=== PATIENT | male | born 2000 | race Caucasian/White ===

== ENCOUNTER 2020-07-28 03:00 | Emergency (ER) | payer OTHER ==
[2020-07-28] MEDS ORDERED: MEPERIDINE HCL 25 MG/ML SYR ONE ×2 (03:42→06:42)
[2020-07-28] MEDS ORDERED: NA CHLORIDE 0.9% 1,000 ML ONE (03:42)
[2020-07-28] MEDS ORDERED: ONDANSETRON 4 MG/2 ML VIAL ONE ×3 (03:42→06:42)
[2020-07-28 04:04] LABS: Absolute Lymphocytes (CBC) 2.7 K/uL (0.7-4.9); Basophils % 0.4 % (0-1.3); Lymphocytes % 23.5 % (15.3-44.8); MPV 9.4 fL (7.6-11.3); RBC Red Blood Cell Count 4.82 M/uL (4.33-5.43)
[2020-07-28 04:14] LABS: ALT/SGPT 37 U/L (12-78); AST/SGOT 23 U/L (15-37); Albumin 4.2 g/dL (3.4-5.0); Alkaline Phosphatase 61 U/L (45-117); BUN Blood Urea Nitrogen 9 mg/dL (7-18); Bicarbonate 29 mmol/L (21-32); Bilirubin Direct 0.1 mg/dL (0-0.2); Bilirubin Total 0.6 mg/dL (0.2-1.0); Glucose Level 105 mg/dL (74-106); Lipase 85 U/L (73-393); Potassium 3.5 mmol/L (3.5-5.1); Protein, Total 7.7 g/dL (6.4-8.2); Sodium Level 142 mmol/L (136-145)
--- NOTE | 2020-07-28 06:37 | ER ---
Nurse's Notes [facility] Name: Tra Martins Age: 19 yrs Sex: Male : 2000 Arrival Date: 07/28/2020 Time: 03:04 Bed 6 Private MD: Diagnosis: Abdominal pain. Colitis Presentation: 07/28 03:12 Chief complaint: Patient states: i have abdominal cramping and vomiting 3-4x tonight. mg2 Coronavirus screen: Client denies travel out of the [place] in the last 14 days. The client reports previous COVID testing was negative. Ebola Screen: No symptoms or risks identified at this time. Initial Sepsis Screen: Does the patient meet any 2 criteria? No. Patient's initial sepsis screen is negative. Does the patient have a suspected source of infection? No. Patient's initial sepsis screen is negative. Risk Assessment: Do you want to hurt yourself or someone else? Patient reports no desire to harm self or others. Onset of symptoms was July 28, 2020. 03:12 Method Of Arrival: Wheelchair mg2 03:12 Acuity: [place] 3 mg2 03:13 Ebola Screen: No symptoms or risks identified at this time. ea Triage Assessment: 03:16 General: Appears in no apparent distress. comfortable, Behavior is calm, cooperative. mg2 Pain: Complains of pain in abdomen Pain does not radiate. Pain currently is 8 out of 10 on a pain scale. Quality of pain is described as crampy, Pain began gradually, Is intermittent. EENT: No signs and/or symptoms were reported regarding the EENT system. Neuro: Level of Consciousness is awake, alert, obeys commands, Oriented to person, place, time, situation. Cardiovascular: Capillary refill < 3 seconds Patient's skin is warm and dry. Respiratory: Airway is patent Respiratory effort is even, unlabored, Respiratory pattern is regular, symmetrical. GI: Reports lower abdominal pain, cramping, vomiting. : No deficits noted. Derm: Skin is intact, is healthy with good turgor, Skin is pink, warm \T\ dry. normal. Musculoskeletal: Circulation, motion, and sensation intact. Capillary refill < 3 seconds. Historical: - Allergies: 03:16 Morphine; mg2 - Home Meds: 03:16 None [Active]; mg2 - PMHx: 03:16 hypospadias; imperforated anus; hydrocephalus; one kidney (LEFT) congenital; heart mg2 [place]; - PSHx: 03:16 imperferated anus surgery; hypospadias; mg2 - Immunization history:: Adult Immunizations up to date. - Social history:: Smoking status: Patient denies any tobacco usage or history of. Screenin:10 Abuse screen: Denies threats or abuse. Nutritional screening: No deficits noted. ea Tuberculosis screening: No symptoms or risk factors identified. Fall Risk None identified. Assessment: 03:17 General: see triage assessment. mg2 06:08 Reassessment: Patient appears in no apparent distress at this time. Patient and/or mg2 family updated on plan of care and expected duration. Pain level reassessed. Patient is alert, oriented x 3, equal unlabored respirations, skin warm/dry/pink. patient complained of nausea. provider informed and orders made. patient medicated. 06:38 Reassessment: patient for dc after completing iv antbiotic. mg2 07:00 Reassessment: RECD REPORT FROM FOUZIA IBARRA. 19YO WM P/W ABD PAIN AND N/V. D/C ON HOLD bp FOR COMPLETION OF IV ABX. 07:45 Reassessment: Patient appears in no apparent distress at this time. Patient and/or ph family updated on plan of care and expected duration. Pain level reassessed. Patient is alert, oriented x 3, equal unlabored respirations, skin warm/dry/pink. Pt d/c home. Vital Signs: 03:12 BP 123 / 81; Pulse 59; Resp 18; Temp 98.4; Pulse Ox 98% on R/A; Height 5 ft. 9 in. mg2 (175.26 cm); Pain 8/10; 03:25 Weight 61.23 kg (R); ea 06:08 BP 136 / 79; Pulse 61; Resp 18; Pulse Ox 99% on R/A; mg2 06:19 BP 124 / 69; Pulse 57; Resp 16; Pulse Ox 99% ; ea 07:15 BP 111 / 65; Pulse 84; Resp 16; Pulse Ox 100% ; bp 03:25 Body Mass Index 19.94 (61.23 kg, 175.26 cm) ea ED Course: 03:04 Patient arrived in ED. bp1 03:05 Joss Romano RN is Primary Nurse. mg2 03:05 Isaias Watson MD is Attending Physician. pkl 03:13 Patient has correct armband on for positive identification. Bed in low position. Call ea light in reach. Pulse ox on. NIBP on. 03:13 Arm band placed on right wrist. Patient placed in an exam room, on a stretcher, on ea pulse oximetry. 03:14 Triage completed. mg2 03:29 Inserted saline lock: 22 gauge in right antecubital area, using aseptic technique. ds4 Blood collected. 05:36 CT Abd/Pelvis - PO and IV Contrast In Process Unspecified. EDMS 06:07 No provider procedures requiring assistance completed. mg2 07:01 Primary Nurse role handed off by Joss Romano, RN bp 07:01 Kavon Kilpatrick, RN is Primary Nurse. bp 07:45 IV discontinued, intact, bleeding controlled, No redness/swelling at site. Pressure ph dressing applied. Administered Medications: 03:35 Drug: Demerol 25 mg Route: IVP; Site: right antecubital; mg2 04:13 Follow up: Response: No adverse reaction; Marked relief of symptoms; RASS: Alert and mg2 Calm (0) 03:35 Drug: Zofran (Ondansetron) 4 mg Route: IVP; Site: right antecubital; mg2 04:13 Follow up: Response: No adverse reaction; Marked relief of symptoms; Nausea is decreasedmg2 03:36 Drug: NS 0.9% 500 ml Route: IV; Rate: bolus; Site: right antecubital; mg2 04:13 Follow up: Response: No adverse reaction; IV Status: Completed infusion; IV Intake: mg2 500ml 04:04 Drug: NS 0.9% 1000 ml Route: IV; Rate: 100 ml/hr; Site: right antecubital; mg2 07:44 Follow up: Response: No adverse reaction; IV Status: Completed infusion; IV Intake: ph 350ml 05:44 Drug: Zofran (Ondansetron) 4 mg Route: IVP; Site: right antecubital; mg2 06:25 Follow up: Response: No adverse reaction; Nausea unchanged mg2 06:33 Drug: Zofran (Ondansetron) 4 mg Route: IVP; Site: right antecubital; mg2 07:44 Follow up: Response: No adverse reaction ph 06:35 Drug: Demerol 25 mg Route: IVP; Site: right antecubital; mg2 07:44 Follow up: Response: No adverse reaction ph 06:37 Drug: Cipro 400 mg Volume: 200 ml; Route: IVPB; Infused Over: 60 mins; Site: right mg2 antecubital; 07:44 Follow up: Response: No adverse reaction; IV Status: Completed infusion ph Intake: 04:13 IV: 500ml; Total: 500ml. mg2 07:44 IV: 350ml; Total: 850ml. ph Outcome: 06:37 Discharge ordered by . pkcarole 07:45 Discharged to home via wheelchair, with family. ph 07:45 Condition: good 07:45 Discharge instructions given to patient, Instructed on discharge instructions, follow up and referral plans. medication usage, Demonstrated understanding of instructions, follow-up care, medications, Prescriptions given X 2. 07:46 Patient left the ED. ph Signatures: Dispatcher [employer] EDMS Isaias Watson MD MD pkl Swanson, Donovan ds4 Jigna Urbina RN RN ph Kisha Salinas RN RN ea Peltier, Brian, RN RN bp Gardose, Michele, RN RN mg2 Anna Ch bp1 Corrections: (The following items were deleted from the chart) 06:09 06:08 Pulse 61bpm; Resp 18bpm; Pulse Ox 99% RA; mg2 mg2
--- NOTE | 2020-07-28 06:38 | EDPHYS ---
Physician Documentation [facility] Name: Tra Martins Age: 19 yrs Sex: Male : 2000 Arrival Date: 07/28/2020 Time: 03:04 Bed 6 Private MD: ED Physician Isaias Watson HPI: 07/28 03:27 This 19 yrs old Male presents to ER via Wheelchair with complaints of pkl Abdominal Pain, Abdominal Cramping, Vomiting. 03:27 The patient presents with abdominal pain in the lower abdomen. Onset: The pkl symptoms/episode began/occurred just prior to arrival, 2 hour(s) ago. The symptoms do not radiate. Associated signs and symptoms: Pertinent positives: nausea and vomiting. The patient has experienced similar episodes in the past, several times. Patient has H/O imperforate anus surgery done as an . Historical: - Allergies: 03:16 Morphine; mg2 - Home Meds: 03:16 None [Active]; mg2 - PMHx: 03:16 hypospadias; imperforated anus; hydrocephalus; one kidney (LEFT) congenital; heart mg2 [place]; - PSHx: 03:16 imperferated anus surgery; hypospadias; mg2 - Immunization history:: Adult Immunizations up to date. - Social history:: Smoking status: Patient denies any tobacco usage or history of. ROS: 03:27 Eyes: Negative for injury, pain, redness, and discharge, ENT: Negative for injury, pkl pain, and discharge, Neck: Negative for injury, pain, and swelling, Cardiovascular: Negative for chest pain, palpitations, and edema, Respiratory: Negative for shortness of breath, cough, wheezing, and pleuritic chest pain. 03:27 Abdomen/GI: Positive for abdominal pain, nausea and vomiting, abdominal cramps, of the right lower quadrant and left lower quadrant. 03:27 Back: Negative for acute changes. 03:27 : Negative for urinary symptoms. 03:27 MS/extremity: Negative for acute changes. 03:27 Skin: Negative for rash. 03:27 Neuro: Negative for altered mental status. Exam: 03:27 Head/Face: Normocephalic, atraumatic. Eyes: Pupils equal round and reactive to light, pkl extra-ocular motions intact. Lids and lashes normal. Conjunctiva and sclera are non-icteric and not injected. Cornea within normal limits. Periorbital areas with no swelling, redness, or edema. ENT: Nares patent. No nasal discharge, no septal abnormalities noted. Tympanic membranes are normal and external auditory canals are clear. Oropharynx with no redness, swelling, or masses, exudates, or evidence of obstruction, uvula midline. Mucous membranes moist. Neck: Trachea midline, no thyromegaly or masses palpated, and no cervical lymphadenopathy. Supple, full range of motion without nuchal rigidity, or vertebral point tenderness. No Meningismus. Chest/axilla: Normal chest wall appearance and motion. Nontender with no deformity. No lesions are appreciated. Cardiovascular: Regular rate and rhythm with a normal S1 and S2. No gallops, murmurs, or rubs. Normal PMI, no JVD. No pulse deficits. Respiratory: Lungs have equal breath sounds bilaterally, clear to auscultation and percussion. No rales, rhonchi or wheezes noted. No increased work of breathing, no retractions or nasal flaring. 03:27 Abdomen/GI: Bowel sounds: active, Palpation: soft, mild abdominal tenderness, in the right lower quadrant and left lower quadrant. 03:27 Back: Exam negative for acute changes. 03:27 : Exam negative for acute changes. 03:27 Musculoskeletal/extremity: Exam is negative for acute changes. 03:27 Skin: Exam negative for rash. 03:27 Neuro: Orientation: is normal, Mentation: is normal, Cranial nerves: grossly normal, Motor: is normal. Vital Signs: 03:12 BP 123 / 81; Pulse 59; Resp 18; Temp 98.4; Pulse Ox 98% on R/A; Height 5 ft. 9 in. mg2 (175.26 cm); Pain 8/10; 03:25 Weight 61.23 kg (R); ea 06:08 BP 136 / 79; Pulse 61; Resp 18; Pulse Ox 99% on R/A; mg2 06:19 BP 124 / 69; Pulse 57; Resp 16; Pulse Ox 99% ; ea 07:15 BP 111 / 65; Pulse 84; Resp 16; Pulse Ox 100% ; bp 03:25 Body Mass Index 19.94 (61.23 kg, 175.26 cm) ea MDM: 03:05 Patient medically screened. pkl 06:29 Data reviewed: vital signs, nurses notes, lab test result(s), radiologic studies, CT pkl scan. ED course: Patient feeling better. Discussed lab. and CT Scan results with patient and mother. Options for outpatient and inpatient offered to patient. Patient and mother outpatient treatment at this time. Will return if symptoms are worse.. 07/28 03:14 Order name: Basic Metabolic Panel; Complete Time: 04:25 mg2 07/28 03:14 Order name: CBC with Diff; Complete Time: 04:12 mg2 07/28 03:14 Order name: Hepatic Function; Complete Time: 04:25 mg2 07/28 03:14 Order name: Lipase; Complete Time: 04:25 mg2 07/28 03:26 Order name: CT Abd/Pelvis - PO and IV Contrast pkl 07/28 03:14 Order name: IV Saline Lock; Complete Time: 03:33 mg2 07/28 03:14 Order name: Labs collected and sent; Complete Time: 03:33 mg2 Administered Medications: 03:35 Drug: Demerol 25 mg Route: IVP; Site: right antecubital; mg2 04:13 Follow up: Response: No adverse reaction; Marked relief of symptoms; RASS: Alert and mg2 Calm (0) 03:35 Drug: Zofran (Ondansetron) 4 mg Route: IVP; Site: right antecubital; mg2 04:13 Follow up: Response: No adverse reaction; Marked relief of symptoms; Nausea is decreasedmg2 03:36 Drug: NS 0.9% 500 ml Route: IV; Rate: bolus; Site: right antecubital; mg2 04:13 Follow up: Response: No adverse reaction; IV Status: Completed infusion; IV Intake: mg2 500ml 04:04 Drug: NS 0.9% 1000 ml Route: IV; Rate: 100 ml/hr; Site: right antecubital; mg2 07:44 Follow up: Response: No adverse reaction; IV Status: Completed infusion; IV Intake: ph 350ml 05:44 Drug: Zofran (Ondansetron) 4 mg Route: IVP; Site: right antecubital; mg2 06:25 Follow up: Response: No adverse reaction; Nausea unchanged mg2 06:33 Drug: Zofran (Ondansetron) 4 mg Route: IVP; Site: right antecubital; mg2 07:44 Follow up: Response: No adverse reaction ph 06:35 Drug: Demerol 25 mg Route: IVP; Site: right antecubital; mg2 07:44 Follow up: Response: No adverse reaction ph 06:37 Drug: Cipro 400 mg Volume: 200 ml; Route: IVPB; Infused Over: 60 mins; Site: right mg2 antecubital; 07:44 Follow up: Response: No adverse reaction; IV Status: Completed infusion ph Disposition: 07/28/20 06:37 Discharged to Home. Impression: Abdominal pain. Colitis. - Condition is Stable. - Prescriptions for Cipro 500 mg Oral Tablet - take 1 tablet by ORAL route every 12 hours for 5 days; 10 tablet. Zofran 4 mg Oral Tablet - take 1 tablet by ORAL route every 8 hours As needed; 12 tablet. - Medication Reconciliation Form, Thank You Letter, Antibiotic Education, Prescription Opioid Use, Work release form form. - Follow up: Private Physician; When: 2 - 3 days; Reason: Re-evaluation by your physician. - Problem is new. - Symptoms have improved. Signatures: Dispatcher [employer] EDMS Isaias Watson MD MD pkl Jigna Urbina RN RN Kisha Salinas RN RN Joss Romano RN RN mg2 Corrections: (The following items were deleted from the chart) 07:46 06:37 07/28/2020 06:37 Discharged to Home. Impression: Abdominal pain. Colitis. ph Condition is Stable. Forms are Medication Reconciliation Form, Thank You Letter, Antibiotic Education, Prescription Opioid Use. Follow up: Private Physician; When: 2 - 3 days; Reason: Re-evaluation by your physician. Problem is new. Symptoms have improved. pkl
[2020-07-28] MEDS ORDERED: CIPROFLOXACIN 400mg IV 400 MG/200 ML BAG IV ONE (06:42)
--- NOTE | 2020-07-28 10:16 | RAD REPORT ---
EXAM DESCRIPTION: CT Abdomen and Pelvis With Intravenous Contrast CLINICAL HISTORY: ABD PAIN TECHNIQUE: Axial computed tomography images of the abdomen and pelvis with intravenous contrast. S agittal and coronal reformatted images were created and reviewed. This CT exam was performed using one or more of the following dose reduction techniques: automated exposure control, adjustment of t he mA and/or kV according to patient size, and/or use of iterative reconstruction technique. Oral c ontrast was administered. COMPARISON: No relevant prior studies available. FINDINGS: Limitations: None. Lung bases: No abnormality noted. Pleural space: No abnormality noted. Heart: No abnormality noted. Mediastinum: No abnormality noted. ABDOMEN: Liver: No abnormality noted. Gallbladder and bile ducts: No calcified stones or surrounding fluid. Pancreas: Homogeneous enhancement. No mass, inflammation or ductal dilation. Spleen: No abnormality noted. Adrenals: Visualized portions appear normal. Kidneys and ureters: Absent right kidney. There is compensatory hypertrophy of the left kidney. No stones or hydronephrosis. Stomach and bowel: There is a moderate to large amount of diffuse colonic stool. There is short segment collapse and thickening of the sigmoid colon. The thickened segment is devoid of stool wit h a moderate amount of stool proximal and distal to the segment. No obstruction. PELVIS: Appendix: Well seen and appears normal. Bladder: No filling defects to suggest mass or large stone. No inflammation. Reproductive: No abnormalities noted. ABDOMEN and PELVIS: Intraperitoneal space: Trace free fluid noted in the pelvis. No abscess or free air. Bones/joints: No acute change noted. Soft tissues: No abnormality noted. Vasculature: No abdominal aortic aneurysm. Lymph nodes: No pathologically enlarged lymph nodes. IMPRESSION: Short segment sigmoid colonic thickening with a large amounts of stool proximal and dist al. Consider stercoral colitis. There is no obstruction. Electronically signed by: Hazel Oliver MD 07/28/2020 6:12 AM WASTE MACHINE OPERATOR Due to temporary technical issues with the PACS/Fluency reporting system, reports are being signed by the in house radiologists without review as a courtesy to insure prompt reporting. The interpreting radiologist is fully responsible for the content of the report.
[2020-07-28 11:25] VITALS: TEMP 98.4
[2020-07-28 11:30] VITALS: BP 111/65; O2SAT 100
== END 2020-07-28 07:46 | disposition home or self-care (01) ==
LOC: ER 03:00
DX: K52.9 Noninfective gastroenteritis and colitis, unspecified (principal); R01.1 Cardiac murmur, unspecified; Z88.5 Allergy status to narcotic agent
CPT/HCPCS: 85025; 80048; 36415; 80076; 83690; 74177; Q9967; J2175 ×2; J7030; J2405 ×3; J0744; 96361; 96365; 96375; 99284

== ENCOUNTER 2020-08-17 08:21 | Day surgery (SDC) | payer OTHER ==
[2020-08-17] MEDS ORDERED: Ringers Lactate 1,000 ML IV ONE (08:55)
[2020-08-17 09:06] VITALS: O2SAT 100
[2020-08-17] MEDS ORDERED: propofoL 200 MG/20 ML VIAL IV ONE (09:28)
[2020-08-17] MEDS ORDERED: LIDOCAINE 2% MPF 5 ML VIAL ONE (09:28)
[2020-08-17] MEDS ORDERED: MIDAZOLAM HCL 2 MG/2 ML INJ ONE (09:28)
--- NOTE | 2020-08-17 10:45 | ENDO RPT ---
[address], [address] COLONOSCOPY PROCEDURE REPORT EXAM DATE: 08/17/2020 PATIENT NAME: Tra Martins MR #: [id number] BIRTHDATE: 2000 ATTENDING: Gustavo Cormier MD STATUS: outpatient BIG DATA PLATFORM ARCHITECT: Anabel Chiu RN and Mary Kay Borja CST INDICATIONS: The patient is a 20 yr old Male here for a colonoscopy due to BRBPR, Stricture, abnormal CT of abdomen, change in bowel habits, and constipation, hx of imperforated anus. PROCEDURE PERFORMED: Colonoscopy MEDICATIONS: Per Anesthesia. ESTIMATED BLOOD LOSS: None CONSENT: The patient understands the risks and benefits of the procedure and understands that these risks include, but are not limited to: sedation, allergic reaction, infection, perforation and/or bleeding. Alternative means of evaluation and treatment include, among others: physical exam, x-rays, and/or surgical intervention. The patient elects to proceed with this endoscopic procedure. DESCRIPTION OF PROCEDURE: During intra-op preparation period all mechanical medical equipment was checked for proper function. Hand hygiene and appropriate measures for infection prevention was taken. Procedure, possible complications, alternatives including, but not limited to possibility of bleeding, perforation, tear, infection, sepsis, need for surgery, need for blood transfusion, were explained to the patient. After the risks, benefits and alternatives of the procedure were thoroughly explained, Informed consent was verified, confirmed and timeout was successfully executed by the treatment team. The patient was placed in the left lateral position. A digital rectal exam was performed and revealed an anal stricture. under appropriate level of anesthesia, the scope was passed. The EC-[id number] ([id number]) endoscope was introduced through the anus and advanced to the cecum, which was identified by transillumination from the light source, the appendix, and the ileocecal valve. The quality of the prep was fair. The instrument was then slowly withdrawn as the colon was fully examined. Scope withdrawal time was . COLON FINDINGS: Anal stricture. Retroflexed views revealed no abnormalities. The scope was then completely withdrawn from the patient and the procedure terminated. ADVERSE EVENTS: There were no complications. IMPRESSIONS: Anal stricture RECOMMENDATIONS: follow-up: office 1 week(s) RECALL: Gustavo Cormier MD eSigned: Gustavo Cormier MD 08/17/2020 10:45 AM cc: Trevor Patricio M.D. CPT CODES: ICD9 CODES: PATIENT NAME: Tra Martins MR#: [id number]
[2020-08-17 11:17] VITALS: TEMP 97
[2020-08-17 11:20] VITALS: BP 108/69
== END 2020-08-17 11:13 | disposition home or self-care (01) ==
LOC: OR 08:21
PROVIDERS: ATTEND Surgery
PROC: 0DJD8ZZ Inspection of Lower Intestinal Tract, Via Natural or Artificial Opening Endoscopic (ICD-10-PCS; principal; 2020-08-17 09:45)
DX: K62.4 Stenosis of anus and rectum (principal); K52.9 Noninfective gastroenteritis and colitis, unspecified; K62.5 Hemorrhage of anus and rectum; Q42.3 Congenital absence, atresia and stenosis of anus without fistula; Z20.828 Contact with and (suspected) exposure to other viral communicable diseases
CPT/HCPCS: 45378; U0002; J2704; J7120; J2250

== ENCOUNTER 2023-01-30 18:56 | Emergency (ER) | payer OTHER ==
[2023-01-30] MEDS ORDERED: IBUPROFEN 200 MG TAB PO ONE (19:19)
[2023-01-30] MEDS ORDERED: IBUPROFEN 400 MG TAB ONE (19:19)
--- NOTE | 2023-01-30 20:33 | RAD REPORT ---
EXAM DESCRIPTION: RAD - Forearm Right - 01/30/2023 8:24 pm CLINICAL HISTORY: PAIN COMPARISON: No comparisons FINDINGS: No fracture or dislocation.
--- NOTE | 2023-01-30 21:00 | EDPHYS ---
Physician Documentation [facility] Name: Tra Martins Age: 22 yrs Sex: Male : 2000 Arrival Date: 01/30/2023 Time: 18:56 Bed 10 Private MD: ED Physician Francisco Fowler HPI: 01/30 19:20 This 22 yrs old Male presents to ER via Ambulatory with complaints of Arm Injury. cp 19:20 The patient or guardian complains of injury. The complaints affect the right wrist and cp right forearm. 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 19:20 Onset: The symptoms/episode began/occurred today. cp 19:20 Treatment prior to arrival includes: no previous treatment. Associated signs and cp symptoms: The patient has no apparent associated signs or symptoms. Historical: - Allergies: 19:18 Morphine; as6 - PMHx: 19:18 Heart Murmur; Hydrocephalus; hypospadias; imperforated anus; one kidney (LEFT) as6 congenital; - Immunization history:: Client reports receiving the 2nd dose of the Covid vaccine, moderna. - Social history:: Smoking status: Patient denies any tobacco usage or history of. ROS: 19:25 MS/extremity: Positive for contusion, pain, of the right wrist and right forearm, cp Negative for decreased range of motion, deformity, paresthesias. 19:25 Constitutional: Negative for fever. cp 19:25 Neck: Negative for pain with movement, pain at rest, stiffness. 19:25 Back: Negative for pain at rest, pain with movement. 19:25 Neuro: Negative for altered mental status, dizziness, headache, weakness. 19:25 All other systems are negative. Exam: 19:30 Constitutional: The patient appears in no acute distress, alert, awake, well developed, cp well nourished. 19:30 Head/Face: Normocephalic, atraumatic. cp 19:30 Neck: ROM/movement: is normal, is supple, without pain, no range of motions limitations. 19:30 Chest/axilla: Inspection: normal. 19:30 Cardiovascular: Rate: normal, Rhythm: regular, Pulses: Pulses are 2+ in right radial artery. 19:30 Respiratory: the patient does not display signs of respiratory distress, Respirations: normal, no use of accessory muscles, no retractions, labored breathing, is not present. 19:30 Back: pain, is absent, ROM is normal. 19:30 Musculoskeletal/extremity: Extremities: grossly normal except: noted in the right forearm and right wrist: tenderness, There is no evidence of decreased ROM, deformity, ROM: full active range of motion, in the rightelbow and right wrist, Perfusion: the extremity is normally perfused throughout, the right hand and right arm Sensation intact. 19:30 Neuro: Orientation: to person, place \T\ time. Mentation: is normal. Vital Signs: 19:14 BP 119 / 76; Pulse 62; Resp 18 S; Temp 98.5(TE); Pulse Ox 99% on R/A; Weight 68.04 kg as6 (R); Height 5 ft. 10 in. (R); Pain 3/10; 19:14 Body Mass Index 21.52 (68.04 kg, 177.8 cm) as6 19:14 Pain Scale: Adult as6 MDM: 19:24 Patient medically screened. cp 20:58 Data reviewed: vital signs, nurses notes, radiologic studies, plain films. I considered cp the following discharge prescriptions or medication management in the emergency department Medications were administered in the Emergency Department. See MAR. Independent interpretation of the following test(s) in the Emergency Department X-Ray: My interpretation is right forearm negative for fracture. 01/30 19:11 Order name: XRAY Forearm RIGHT cp 01/30 19:11 Order name: Ice pack; Complete Time: 19:19 cp 01/30 20:58 Order name: Splint; Complete Time: 21:34 cp Administered Medications: 19:19 Drug: Ibuprofen PO 600 mg Route: PO; as6 20:00 Follow up: Response: No adverse reaction; Marked relief of symptoms; Pain is decreased pf1 Disposition: 01/31 11:10 Co-signature as Attending Physician, Francisco Fowler DO I was immediately available on-site ms3 in the Emergency Department for consultation in the care of the patient. Disposition Summary: 01/30/23 21:00 Discharge Ordered Location: Home cp Problem: new cp Symptoms: have improved cp Condition: Stable cp Diagnosis - Contusion of right forearm cp Followup: cp - With: Michael Hill MD - When: 1 week - Reason: Recheck today's complaints Discharge Instructions: - Discharge Summary Sheet cp - Contusion cp Forms: - Medication Reconciliation Form cp - Thank You Letter cp - Antibiotic Education cp - Prescription Opioid Use cp Prescriptions: - Ibuprofen 800 mg Oral Tablet - take 1 tablet by ORAL route every 8 hours As needed take with food; 30 tablet; cp Refills: 0, Product Selection Permitted Signatures: Dispatcher [employer] EDMS Armen Hirsch PA PA cp Francisco Fowler DO DO ms3 Bishop Castellano RN RN as6 Katie Bellamy RN pf1 Corrections: (The following items were deleted from the chart) 18:41 18:39 MS/extremity: Positive for contusion, pain, of the right wrist and right forearm, cp Negative for decreased range of motion, deformity, paresthesias, cp
--- NOTE | 2023-01-30 21:00 | ER ---
Nurse's Notes [facility] Name: Tra Martins Age: 22 yrs Sex: Male : 2000 Arrival Date: 01/30/2023 Time: 18:56 Bed 10 Private MD: Diagnosis: Contusion of right forearm Presentation: 01/30 19:14 Chief complaint: Patient states: got right arm caught behind a piece of equipment at [employer]6 work. Coronavirus screen: At this time, the client does not indicate any symptoms associated with coronavirus-19. Ebola Screen: No symptoms or risks identified at this time. Initial Sepsis Screen: Does the patient meet any 2 criteria? No. Patient's initial sepsis screen is negative. Does the patient have a suspected source of infection? No. Patient's initial sepsis screen is negative. Risk Assessment: Do you want to hurt yourself or someone else? Patient reports no desire to harm self or others. Onset of symptoms was January 30, 2023. 19:14 Method Of Arrival: Ambulatory as6 19:14 Acuity: [place] 4 as6 Triage Assessment: 19:18 General: Appears in no apparent distress. Behavior is calm, cooperative. Pain: as6 Complains of pain in right arm. Historical: - Allergies: 19:18 Morphine; as6 - PMHx: 19:18 Heart Murmur; Hydrocephalus; hypospadias; imperforated anus; one kidney (LEFT) as6 congenital; - Immunization history:: Client reports receiving the 2nd dose of the Covid vaccine, moderna. - Social history:: Smoking status: Patient denies any tobacco usage or history of. Assessment: 20:20 Reassessment: Patient appears in no apparent distress at this time. Patient and/or nj1 family updated on plan of care and expected duration. Pain level reassessed. Patient is alert, oriented x 3, equal unlabored respirations, skin warm/dry/pink. Ice pack noted on right arm. Patient denies pain at this time. Vital Signs: 19:14 BP 119 / 76; Pulse 62; Resp 18 S; Temp 98.5(TE); Pulse Ox 99% on R/A; Weight 68.04 kg as6 (R); Height 5 ft. 10 in. (R); Pain 3/10; 19:14 Body Mass Index 21.52 (68.04 kg, 177.8 cm) as6 19:14 Pain Scale: Adult as6 ED Course: 19:01 Patient arrived in ED. mr 19:02 Armen Hirsch PA is PHCP. cp 19:02 Francisco Fowler DO is Attending Physician. cp 19:18 Triage completed. as6 19:18 Arm band placed on. as6 19:59 Caryn Colón, RN is Primary Nurse. nj1 20:26 XRAY Forearm RIGHT In Process Unspecified. EDMS 20:59 Michael Hill MD is Referral Physician. cp Administered Medications: 19:19 Drug: Ibuprofen PO 600 mg Route: PO; as6 20:00 Follow up: Response: No adverse reaction; Marked relief of symptoms; Pain is decreased pf1 Outcome: 21:00 Discharge ordered by MD. cp 21:34 Discharged to home ambulatory. pf1 21:34 Condition: improved 21:34 Discharge instructions given to patient, Instructed on discharge instructions, follow up and referral plans. Demonstrated understanding of instructions, follow-up care, medications, Prescriptions given X 1. 21:35 Patient left the ED. pf1 Signatures: Dispatcher [employer] [facility] Greta Robles Armen Hirsch PA PA cp Slawson, Ashby, RN RN as6 Katie Bellamy RN RN pf1 Caryn Colón, RN RN nj1
[2023-01-30 21:47] VITALS: BP 119/76; TEMP 98.5; O2SAT 99
== END 2023-01-30 21:35 | disposition home or self-care (01) ==
LOC: ER 18:56
DX: S50.11XA Contusion of right forearm, initial encounter (principal); W22.8XXA Striking against or struck by other objects, initial encounter; Y93.E5 Activity, floor mopping and cleaning; Y92.89 Other specified places as the place of occurrence of the external cause; Y99.0 Civilian activity done for income or pay
CPT/HCPCS: 99283